=== PATIENT | male | born 1965 | race Caucasian/White ===

== ENCOUNTER 2021-02-18 11:37 | Emergency (ER) | payer BC ==
[2021-02-18] MEDS ORDERED: DIPHTH,PERTUSS(ACELL),TET 0.5 ML DISP.SYRIN IM ONE ×2 (11:52→11:58)
[2021-02-18 11:53] VITALS: BP 133/92; PULSE 51; TEMP 99.1; BMI 25.8
== END 2021-02-18 12:22 | disposition home or self-care (01) ==
LOC: FER 11:37
PROC: 3E0234Z Introduction of Serum, Toxoid and Vaccine into Muscle, Percutaneous Approach (ICD-10-PCS; principal; 2021-02-18)
DX: S91.331A Puncture wound without foreign body, right foot, initial encounter (principal); W45.0XXA Nail entering through skin, initial encounter
CPT/HCPCS: 73630-TC-RT-FY; 90715; 99283-25